=== PATIENT | male | born 1960 | race Caucasian/White ===

== ENCOUNTER 2024-03-24 20:53 | Inpatient (IN) | payer OTHER, SELFPAY ==
[2024-03-24] VITALS (7 sets, daily range): BP systolic 117–157; BP diastolic 54–81; BMI 28.2; BMI 27.6
[2024-03-24 16:40] LABS: Glucose - Point of Care 363 mg/dl (70-99)
[2024-03-24 17:24] LABS: % Eosinophils 0.1 % (0-6); % Immature Granulocytes 0.6 % (0-0.5); % Lymphocytes 5.8 % (20.5-51.1); % Monocytes 6.6 % (1.7-9.3); % Neutrophils 85.9 % (42.2-75.2); Absolute Basophils 0.1 10^3/uL (0-0.2); Absolute Immature Granulocytes 0.1 10^3/uL (0-0.05); Absolute Lymphocytes 0.8 10^3/uL (1.2-3.4); Absolute Monocytes 0.9 10^3/uL (0.1-0.6); Absolute Neutrophils 11.8 10^3/uL (1.4-6.5); Hematocrit 47.6 % (39.0-52.0); Hemoglobin 15.9 g/dL (13.0-18.0); Mean Corp Hgb Conc. 33.4 g/dL (33.0-37.0); Mean Corpuscular Hgb 30.3 pg (27.0-31.0); Mean Corpuscular Volume 90.7 fL (80.0-94.0); Mean Platelet Volume 11.1 fL (7.4-10.4); Nucleated Red Blood Cells % 0 % (-); Platelet Count 269 10^3/uL (130-400); Red Blood Cell Count 5.25 10^6/uL (4.70-6.10); Red Cell Dist. Width 13.9 % (11.5-14.5); White Blood Cell Count 13.8 10^3/uL (4.8-10.8)
[2024-03-24 17:30] LABS: ALT (SGPT) 39 U/L (0-50); AST (SGOT) 47 U/L (17-59); Albumin 5.2 g/dl (3.5-5.0); Alkaline Phosphatase 166 U/L (38-126); Blood Urea Nitrogen 17 mg/dl (9-20); Calcium 10.5 mg/dl (8.4-10.2); Carbon Dioxide < 5 mmol/L (22-30); Chloride 101 mmol/L (98-107); Glucose 341 mg/dl (70-99); Potassium 5.1 mmol/L (3.5-5.1); Sodium 135 mmol/L (135-145); Total Bilirubin 1.5 mg/dl (0.2-1.3); Total Protein 7.7 g/dl (6.3-8.2); eGFR > 60.00
[2024-03-24 18:20] LABS: Glucose - Point of Care 271 mg/dl (70-99)
[2024-03-24] MEDS: NSS 1000 IV (18:23)
--- NOTE | 2024-03-24 18:37 | ED.GENMED ---
History of Present Illness
General
Chief Complaint: Blood Sugar Problem
Source: patient
Exam Limitations: none
Time Seen by Provider: 03/24/24 18:01
Travel History
Have you had any contact with someone who has COVID-19?: No
Do you have any symptoms of coronavirus? Fever > 100 degrees, chills, cough, shortness of breath, sore throat, loss of taste or smell, muscle aches, or headache?: No
History of Present Illness
History of Present Illness:
This is a 63 year old male that comes in with c/o elevated blood sugars. States that he got home from work at 3am and got up at 10am. States that his blood sugar at this time was 320 and he gave himself from Basal insulin about 18-20 units. States
that he kept checking his sugar every 2 hours and it kept going up. State that it went up about 20 points. States that by 3pm his sugar was 360 and he started to feel hot and his breathing was heavy and shallow. States that he knew the feeling so he
decided to come in. States that he did give himself insulin at 2pm. States that he is slightly dizzy. Denies any fever, chills, chest pain, abd pain, nausea, vomiting, diarrhea, headache, urinary burning.
Past History
Past History
ED Past Medical History: IDDM and Other (DKA in 2018); Negative Asthma, CAD or Cancer
ED Past Surgical History: Orthopedic (Right rotator cuff surgery); Negative Cardiac
Social History
Tobacco: Former smoker
Alcohol: Occasional (3 times weekly)
Drug: None
Personal: Single
Living: with family
Employment: Employed
Family History
Family History: Other
Review of Systems
Review of Systems
All Other Systems: ROS reviewed and negative except as documented in HPI and ROS
Constitutional: Reports no symptoms; Denies fever or chills
EENT: Reports no symptoms
Respiratory: Denies cough or trouble breathing ([place] his breathing was shallow)
Cardiac: Reports no symptoms; Denies chest pain
ABD/GI: Reports no symptoms; Denies abdominal pain, nausea, vomiting or diarrhea
: Reports no symptoms; Denies dysuria, frequency or urgency
Musculoskeletal: Reports no symptoms
Skin: Reports no symptoms
Neurological: Reports dizzy; Denies headache
Psychiatric: Reports no symptoms
Phy Exam
General Physical Exam
General Presentation: no apparent distress
General age: appears stated age
General Skin: warm and dry
General Habitus: normal
General Mental: alert
General Hydration: dry mucous membranes
ENT Exam
ENT Exam: TM's normal, pharynx normal and neck supple
Eye Exam
Eye Exam: EOMI
Cardiovascular Exam
Cardiovascular Exam: regular rate/rhythm, no edema and normal peripheral pulses
Pulmonary Exam
Pulmonary Exam: lungs clear, no respiratory distress, no rales, chest non tender, no crackles, no rhonchi, no wheezing and no cough
Gastrointestinal Exam
Gastrointestinal Exam: normal bowel sounds, non tender, soft, no organomegaly, no pulsatile mass and non distended
Musculoskeletal Exam
Musculoskeletal Exam: full ROM and no edema
Skin Exam
Skin Exam: normal color, warm/dry, no rash and no petechia
Psychiatric Exam
Psychiatric Exam: normal mood/affect
Course
Orders/Labs/Results
Orders:
Orders
03/24/24 16:36
Electrocardiogram (*1) Urgent
Reason for Study: Abdominal Pain
EKG- Treatment ONCE
03/24/24 17:07
Complete Blood Count/With Diff Urgent
Comprehensive Metabolic Panel Urgent
03/24/24 18:23
0.9% Sodium Chloride 1000 ml [Nss] 1,000 ml IV BOLUS
03/24/24 18:37
Bedside Glucose- Treatment Q1H
IV Insert/Care/Rem.- Treatment PRN
03/24/24 18:39
B-Hydroxybutyrate Urgent
Basic Metabolic Panel Q2H
03/24/24 18:59
Reg Insulin 100 Units/100 ml [Novolin R Insulin Infusion] 100 units in 100 ml IV NOW
03/24/24 19:37
Venous Blood Gas Urgent
%Oxygen/Room Air: RA
03/24/24 20:45
Basic Metabolic Panel Q2H
03/24/24 22:45
Basic Metabolic Panel Q2H
Abnormal Lab Results
03/24/24 03/24/24 03/24/24
16:38 17:07 18:19
WBC 13.8 H 10^3/uL
(4.8-10.8)
MPV 11.1 H fL
(7.4-10.4)
Abs Immat Gran (auto) 0.1 H 10^3/uL
(0-0.05)
Absolute Neuts (auto) 11.8 H 10^3/uL
(1.4-6.5)
Absolute Lymphs (auto) 0.8 L 10^3/uL
(1.2-3.4)
Absolute Monos (auto) 0.9 H 10^3/uL
(0.1-0.6)
Immature Gran % 0.6 H %
(0-0.5)
Neutrophils % 85.9 H %
(42.2-75.2)
Lymphocytes % 5.8 L %
(20.5-51.1)
VBG pH
VBG pCO2
VBG pO2
VBG HCO3
Carbon Dioxide < 5 L* mmol/L
(22-30)
Glucose 341 H mg/dl
(70-99)
Calcium 10.5 H mg/dl
(8.4-10.2)
Total Bilirubin 1.5 H mg/dl
(0.2-1.3)
Alkaline Phosphatase 166 H U/L
(38-126)
Albumin 5.2 H g/dl
(3.5-5.0)
POC Glucose 363 H mg/dl 271 H mg/dl
(70-99) (70-99)
03/24/24 03/24/24 03/24/24
18:39 19:35 19:37
WBC
MPV
Abs Immat Gran (auto)
Absolute Neuts (auto)
Absolute Lymphs (auto)
Absolute Monos (auto)
Immature Gran %
Neutrophils %
Lymphocytes %
VBG pH 7.21 L
(7.32-7.43)
VBG pCO2 25 L mmHg
(35-48)
VBG pO2 157 H mmHg
(30-50)
VBG HCO3 10.0 L mmol/L
(22-27)
Carbon Dioxide 7 L* mmol/L
(22-30)
Glucose 263 H mg/dl
(-99)
Calcium 10.3 H mg/dl
(8.4-10.2)
Total Bilirubin
Alkaline Phosphatase
Albumin
POC Glucose 236 H mg/dl
(-99)
03/24/24 17:07
Leukocytosis, DKA noted, Total emelina slightly elevated. Calcium slightly elevated. Alk phos elevation. Albumin slightly elevated.
Vital Signs
Initial and Last Documented VS:
Initial Vital Signs
Temp Pulse Resp BP Pulse Ox
97.8 F 120 20 157/81 100
03/24/24 16:31 03/24/24 16:31 03/24/24 16:31 03/24/24 16:31 03/24/24 16:31
Last Documented Vital Signs
Temp Pulse Resp BP Pulse Ox
97.8 F 115 20 139/70 100
03/24/24 16:31 03/24/24 18:11 03/24/24 18:11 03/24/24 18:11 03/24/24 18:11
MDM/Problems Addressed
Differential Diagnosis Includes:
DKA
MDM/Problems Addressed:
This is a 63 year old male that comes in with c/o hyperglycemia. States that he got up at 10am and his blood sugar was 320. Staes that he has been unable to get his sugar down. States that he gave himself insulin at 10am and then again at 2pm.
Will get labs, Start Insulin drip and admit as patient labs show he is in DKA.
Chronic conditions affecting care: DM
Acute Exacerbation and/or Progression of Chronic Illness: DM
*Pulse Oximetry
Patient hypoxic: no
*EKG
Interpreted by ED Provider?: Yes
Heart Rate: 114
Rate: tachycardiac
Rhythm: sinus tachycardia
[place]: normal axis
Interval: normal interval
QRS Pattern: normal QRS
Ischemia: no ischemia
*Director Of Group Sales Interpretation
Rate: tachycardiac
Heart Rate: 109
Rhythm: sinus
*Critical Care Note
Total Time (30-74mins, 75-104mins- exclusive of procedures): Not Applicable
ED Attending Note
-
Portions of this chart may have been created with voice recognition software.� Occasional wrong word or��sound alike� substitutions may have occurred due to the inherent limitations of voice recognition software.
Discharge Plan
Departure
Patient Disposition: Admit
Date of Disposition: 03/24/24
Time of Disposition: 19:17
Admit to: ICU
Presentation/result/management discussed w/ accepting MD/DO: Hospitalist
Patient with high blood pressure during this ER visit?: Yes
Condition: Good
Covid-19: Not Applicable
Discharge Problem:
DKA (diabetic ketoacidosis)
Prescriptions:
No Action
atorvastatin 40 MG tablet
40 mg PO DAILY
insulin lispro 100 unit/mL solution
0 sliding scale dose SC .VIA PUMP
Patient Comments:
03/24/2024: Pt uses an Omnipod
Referrals:
Cherelle Wagner DO [Family Provider] -
Interventions
Interventions:
*Risk Screen - Suicide Last Done: 03/24/24 16:31
*General Assessment Last Done: 03/24/24 16:31
*Neglect/Abuse Screening Last Done: 03/24/24 16:31
ED- Neurological Assessment Last Done: 03/24/24 18:11
Discharge Date and Time
Print Language: KOSOVAN
[2024-03-24 19:18] LABS: Blood Urea Nitrogen 18 mg/dl (9-20); Calcium 10.3 mg/dl (8.4-10.2); Carbon Dioxide 7 mmol/L (22-30); Chloride 102 mmol/L (98-107); Estimated Creatinine Clearance 85 ml/min; Glucose 263 mg/dl (70-99); Potassium 4.9 mmol/L (3.5-5.1); Sodium 135 mmol/L (135-145); eGFR > 60.00
[2024-03-24] MEDS: NOVOLIN R INSULIN INFUSION 100 IV ×2 (19:28→22:51)
[2024-03-24 19:36] LABS: Glucose - Point of Care 236 mg/dl (70-99)
[2024-03-24 19:45] LABS: Venous Blood Gas B.E. -16.1 mmol/L (-4 to +4); Venous Blood Gas O2 Sat % 99.3 %; Venous Blood Gas pCO2 25 mmHg (35-48); Venous Blood Gas pH 7.21 (7.32-7.43); Venous Blood Gas pO2 157 mmHg (30-50)
--- NOTE | 2024-03-24 20:27 | HPS.HSE ---
Family Physician
-
Family Physician: Cherelle Wagner
Chief Complaint
-
Hyperglycemia, Fatigue
History of Present Illness
Patient is a 63y M with PMH significant for DM-I / IAM who presents to ED complaining of elevated glucose since this AM and progressive dry mouth, fatigue and malaise throughout the day. Patient states that he woke this AM around 10 and his
glucose was > 300. He has a Dexcom / insulin pump tandem. He administered extra insulin (via his pump) however his sugars continued to increase throughout the day. Around 3 PM, he changed the pump site / set-up. However, he had already developed
lightheadedness, fatigue, dry mouth, polydipsia and malaise.
He presented to the ED for further evaluation and treatment. He is noted to have hyperglycemia with anion gap acidosis c/w DKA.
Patient denies any recent illness, fevers / chills, cough, N/V/D, urinary symptoms, etc.
He has been using an insulin pump for about 4-5 months now under the direction of his Dust Operator out of [facility].
Medical History
Past Medical History
Past Medical History: Reports Other
Additional Past Medical History:
DM - States that he was initially on oral medicine / Type II but recent evaluation confirms Type I / IAM.
Past Surgical History: Reports Other
Additional Past Surgical History:
R Rotator Cuff Repair
Social History
Tobacco: Former Smoker (Quit smoking 20 years ago. Approx 20 pack years total use.)
Alcohol: Occasional
Drug: None
Family History
Family History: Not pertinent (No family history of DM.)
Allergies / Home Medications
Allergies reflects when Allergies were last updated in [facility].
Home Medications with original date entered in [facility]
Allergy/Medication List:
Allergies
Allergy/AdvReac Type Severity Reaction Status Date / Time
amoxicillin Allergy Unknown Verified 03/24/24 16:36
moxifloxacin HCl Allergy Unknown Verified 03/24/24 16:36
[From Avelox]
Home Medications
atorvastatin 40 mg tablet 40 mg PO DAILY High cholesterol 03/07/20
insulin lispro 100 unit/mL subcutaneous solution 0 sliding scale dose SC .VIA PUMP 03/24/24
Review of Systems
-
History Source: Patient
A 12 point ROS was completed and negative except as noted: Yes
Constitutional: Reports Fatigue; Denies Fever or Chills
EENT: Reports Other (Dry mouth); Denies Sore Throat
Respiratory: Reports Trouble Breathing; Denies Cough
Cardiac: Denies Chest Pain or Palpitations
Abdomen/GI: Denies Abdominal Pain, Nausea, Vomiting or Diarrhea
: Reports Frequency; Denies Dysuria or Incontinence
Musculoskeletal: Denies Joint Pain or Edema
Neurological: Denies Dizzy or Headache
Endocrine: Reports Polyuria and Polydipsia
Psych: Denies Depression or Anxiety
Physical Exam
Vital Signs
Vital Signs
Temp Pulse Resp BP Pulse Ox
97.8 F 99 24 117/54 97
03/24/24 16:31 03/24/24 20:00 03/24/24 20:00 03/24/24 20:00 03/24/24 20:00
Physical Exam
General: Other (63y M in no acute distress.)
HEENT: Other (Dry MM. Neck supple.)
Respiratory: Clear; No Wheezes, Rales or Rhonchi
Cardiac: S1/S2 and Regular Rhythm; No Murmur
GI: Soft, Non Tender, Non Distended and Normal Bowel Sounds
Musculoskeletal: No Clubbing, No Cyanosis and No Edema
Neuro: AO x 3
Laboratory Results
-
03/24/24 17:07
Laboratory Results
Total Bilirubin 1.5 mg/dl (0.2-1.3) H 03/24/24 17:07
AST 47 U/L (17-59) 03/24/24 17:07
ALT 39 U/L (0-50) 03/24/24 17:07
Alkaline Phosphatase 166 U/L (38-126) H 03/24/24 17:07
Impression/Plan
-
A/P: Patient is a 63y M with PMH significant for insuin-dependent DM who presents to ED complaining of hyperglycemia, fatigue and lightheadedness.
DKA
DM-I, Uncontrolled
- Admit for further evaluation and treatment.
- Seems likely this was due to pump failure given Dexcom / pump tandem.
- IV insulin infusion until anion gap is corrected.
- IVFs / electrolytes replacement as needed.
- DM ANALYTICAL CHEMISTRY TEACHER eval after anion gap is normalized for pump recommendations / assessment.
- Check CXR / UA - but patient has no symptoms of focal infection, etc.
DVT Prophylaxis: Lovenox
Code Status: Full
[2024-03-24 20:40] LABS: Glucose - Point of Care 138 mg/dl (70-99)
[2024-03-24 20:58] LABS: B-Hydroxybutyrate 8.86 mmol/L (0.02-0.27)
[2024-03-24 21:25] LABS: Urine Albumin Trace (Neg - Trace); Urine Bilirubin Negative (Negative); Urine Character Clear (Clear); Urine Color Yellow; Urine Glucose 2+ (Negative); Urine Ketone 3+ (Negative); Urine Leukocyte Negative (Negative); Urine Nitrite Negative (Negative); Urine Occult Blood 2+ (Negative); Urine Urobilinogen Negative (Neg - 1+)
[2024-03-24 21:34] LABS: Glucose - Point of Care 129 mg/dl (70-99)
[2024-03-24] MEDS: D5/0.45%NSS with KCL 20 MEQ 1000 IV (21:36)
[2024-03-24 21:45] LABS: Urine Red Blood Cell 21-25 /HPF (0-2); Urine White Cell 0-2 /HPF (0-5)
[2024-03-24 22:04] LABS: Blood Urea Nitrogen 17 mg/dl (9-20); Calcium 9.5 mg/dl (8.4-10.2); Carbon Dioxide 12 mmol/L (22-30); Chloride 106 mmol/L (98-107); Estimated Creatinine Clearance 109 ml/min; Glucose 132 mg/dl (70-99); Potassium 4.5 mmol/L (3.5-5.1); Sodium 132 mmol/L (135-145); eGFR > 60.00
[2024-03-24 22:28] LABS: TSH Reflex To Free T4 0.29 uIU/ml (0.47-4.68)
[2024-03-24 22:57] LABS: Free T4 0.77 ng/dl (0.78-2.19)
[2024-03-24 22:58] LABS: Glucose - Point of Care 142 mg/dl (70-99)
[2024-03-24 23:57] LABS: Glucose - Point of Care 169 mg/dl (70-99)
[2024-03-25] VITALS (10 sets, daily range): BP systolic 110–133; BP diastolic 56–82; BMI 29.0
--- NOTE | 2024-03-25 00:44 | PTCARENOTE ---
pt admitted from ED- pt is a a self, able to walk into room without issues. insulin drip infusing, rate 1u/hr for sugar of 142. pt with no complaints of pain. IV fluids infusing. pt oriented to new room, call schmidt within reach, care ongoing.
[2024-03-25 01:00] LABS: Glucose - Point of Care 150 mg/dl (70-99)
[2024-03-25 01:19] LABS: Blood Urea Nitrogen 15 mg/dl (9-20); Calcium 9.2 mg/dl (8.4-10.2); Carbon Dioxide 15 mmol/L (22-30); Chloride 108 mmol/L (98-107); Estimated Creatinine Clearance > 125 ml/min; Glucose 175 mg/dl (70-99); Potassium 4.4 mmol/L (3.5-5.1); Sodium 132 mmol/L (135-145); eGFR > 60.00
[2024-03-25] MEDS: D5/0.45%NSS with KCL 20 MEQ 1000 IV ×3 (01:43→11:34)
[2024-03-25 02:00] LABS: Glucose - Point of Care 202 mg/dl (70-99)
[2024-03-25 03:09] LABS: Glucose - Point of Care 204 mg/dl (70-99)
[2024-03-25 04:07] LABS: Glucose - Point of Care 234 mg/dl (70-99)
[2024-03-25 05:16] LABS: Glucose - Point of Care 213 mg/dl (70-99)
[2024-03-25 05:25] LABS: Hematocrit 36.8 % (39.0-52.0); Hemoglobin 12.9 g/dL (13.0-18.0); Mean Corp Hgb Conc. 35.1 g/dL (33.0-37.0); Mean Corpuscular Volume 85.6 fL (80.0-94.0); Mean Platelet Volume 10.8 fL (7.4-10.4); Platelet Count 208 10^3/uL (130-400); Red Cell Dist. Width 13.9 % (11.5-14.5); White Blood Cell Count 7.8 10^3/uL (4.8-10.8)
[2024-03-25 05:55] LABS: ALT (SGPT) 27 U/L (0-50); AST (SGOT) 29 U/L (17-59); Albumin 3.4 g/dl (3.5-5.0); Alkaline Phosphatase 101 U/L (38-126); Blood Urea Nitrogen 12 mg/dl (9-20); Calcium 9.1 mg/dl (8.4-10.2); Carbon Dioxide 16 mmol/L (22-30); Chloride 110 mmol/L (98-107); Direct Bilirubin 0.3 mg/dl (0.0-0.4); Estimated Creatinine Clearance > 125 ml/min; Glucose 189 mg/dl (70-99); Magnesium 1.9 mg/dl (1.6-2.3); Phosphorus 3.2 mg/dl (2.5-4.5); Potassium 4.2 mmol/L (3.5-5.1); Sodium 132 mmol/L (135-145); Total Bilirubin 0.9 mg/dl (0.2-1.3); Total Protein 5.6 g/dl (6.3-8.2); eGFR > 60.00
[2024-03-25 06:16] LABS: Glucose - Point of Care 182 mg/dl (70-99)
[2024-03-25 07:20] LABS: Glucose - Point of Care 167 mg/dl (70-99)
[2024-03-25] MEDS: PROTONIX IV 40 MG IV (08:10)
[2024-03-25 08:20] LABS: Glucose - Point of Care 183 mg/dl (70-99)
[2024-03-25 09:09] LABS: Glycohemoglobin (HgbA1c) 8.2 % (4.0-5.6)
[2024-03-25 09:15] LABS: Glucose - Point of Care 187 mg/dl (70-99)
[2024-03-25 10:39] LABS: Glucose - Point of Care 212 mg/dl (70-99)
[2024-03-25 11:44] LABS: Glucose - Point of Care 211 mg/dl (70-99)
--- NOTE | 2024-03-25 11:56 | PN.DE.MGMTRT ---
Addendum entered and electronically signed by Zaira Darby NP 03/25/24 12:02:
After lantus administered 2 hours later please stop insulin and IV fluids. Nayana RUFF
Original Note:
Insulin Management
- -
03/25/2024 Diabetes Management Consult
Patient admitted with DKA. H type 1 diabetes, was using an OmniPod with DexCom. A1C on admission 8.2%. Patient follows with [facility]. CR .6, eGFR >60
Patient currently on DKA insulin infusion, GAP has closed. Patient has no PODS and CGM has , there is no one who can bring supplies. I am able to see his settings for his pump:
Basal: .9 per hour, 21.6 Basal total
I:CHO ratio 1:6.5
Correction 1:32
Will give 22 units lantus now, 1800 calorie diet, 6 units novolog AC with moderate corrective.
Will follow
Diabetes History
- -
Type of Diabetes: 1
Pre-Admission Diabetes Regimen
03/24/24 03/24/24 03/24/24
17:07 18:39 20:45
Creatinine 0.9 0.9 Cancelled
03/24/24 03/24/24 03/25/24
21:31 22:45 00:49
Creatinine 0.7 Cancelled 0.6 L
03/25/24 03/25/24 03/25/24
05:05 09:21 13:11
Creatinine 0.6 L Cancelled Cancelled
03/25/24
17:11
Creatinine Cancelled
Lab Results
Hemoglobin A1c 8.2 % (4.0-5.6) H 03/24/24 21:31
Insulin Pump Settings
IP Diabetes Regimen
03/24/24 03/24/24 03/24/24
16:38 17:07 18:19
Glucose 341 H
POC Glucose 363 H 271 H
03/24/24 03/24/24 03/24/24
18:39 19:35 20:37
Glucose 263 H
POC Glucose 236 H 138 H
03/24/24 03/24/24 03/24/24
20:45 21:31 21:33
Glucose Cancelled 132 H
POC Glucose 129 H
03/24/24 03/24/24 03/24/24
22:45 22:46 23:44
Glucose Cancelled
POC Glucose 142 H 169 H
03/25/24 03/25/24 03/25/24
00:48 00:49 01:46
Glucose 175 H
POC Glucose 150 H 202 H
03/25/24 03/25/24 03/25/24
02:56 03:54 05:03
Glucose
POC Glucose 204 H 234 H 213 H
03/25/24 03/25/24 03/25/24
05:05 06:02 07:07
Glucose 189 H
POC Glucose 182 H 167 H
03/25/24 03/25/24 03/25/24
08:08 09:02 09:21
Glucose Cancelled
POC Glucose 183 H 187 H
03/25/24 03/25/24 03/25/24
10:28 11:33 13:11
Glucose Cancelled
POC Glucose 212 H 211 H
03/25/24
17:11
Glucose Cancelled
POC Glucose
Patient Education
[2024-03-25 12:39] LABS: Blood Urea Nitrogen 8 mg/dl (9-20); Carbon Dioxide 15 mmol/L (22-30); Chloride 110 mmol/L (98-107); Estimated Creatinine Clearance > 125 ml/min; Glucose 192 mg/dl (70-99); Potassium 4.5 mmol/L (3.5-5.1); Sodium 134 mmol/L (135-145); eGFR > 60.00
[2024-03-25] MEDS: LANTUS 0.220000000000000001 UNITS SC (12:47)
[2024-03-25 12:50] LABS: Glucose - Point of Care 220 mg/dl (70-99)
[2024-03-25 13:50] LABS: Glucose - Point of Care 206 mg/dl (70-99)
[2024-03-25] MEDS: NOVOLOG FLEXPEN 6 UNITS SC ×2 (14:42→18:42)
[2024-03-25] MEDS: NOVOLOG FLEXPEN-MODERATE RESISTANCE 1 UNITS SC (14:43)
[2024-03-25] MEDS: D5LR 1000 IV (14:43)
[2024-03-25 14:44] LABS: Glucose - Point of Care 189 mg/dl (70-99)
--- NOTE | 2024-03-25 14:56 | W.PN.HOSP.TC ---
Today's Communication/Plan
-
transition to subq insulin
dm diet
monitor fs
Assessment / Plan
Assessment / Plan
Physical Exam
General: Other (63y M in no acute distress.)
HEENT: Other (Dry MM. Neck supple.)
Respiratory: Clear; No Wheezes, Rales or Rhonchi
Cardiac: S1/S2 and Regular Rhythm; No Murmur
GI: Soft, Non Tender, Non Distended and Normal Bowel Sounds
Musculoskeletal: No Clubbing, No Cyanosis and No Edema
Neuro: AO x 3
A/P: Patient is a 63y M with PMH significant for insuin-dependent DM who presents to ED complaining of hyperglycemia, fatigue and lightheadedness.
DKA
DM-I, Uncontrolled
- Admit for further evaluation and treatment.
- Seems likely this was due to pump failure given Dexcom / pump tandem.
- Gap Closed; transitioned to Subq insulin
- Cont IVF until can tolerate diet, then can dc fluids
- Resume DM diet
- BMP x 1 - 4 hours after dc insulin ggt
- Appreciate DM COSTING MANAGER recs
- No evidence of infection/chest pain
-Monitor FS - if stable, plan for dc tomorrow
-Hgba1c - 8.2
#Leukocytosis
-most likely reactive with DKA
-no evidence of infection
-f/u cbc, wbc
-improved with resuscitation
#Clinical Euthyroidism
-f/u tsh/ reflex free t4 outpatient
DVT Prophylaxis: Lovenox
Code Status: Full
Total time spent on today's encounter was 50 minutes which included time spent in counseling the patient/family regarding diagnosis and treatment plan as listed above, goals of care, and symptom management. Case was discussed with nursing staff,
specialists, and care coordinators/case management. All labs and imaging personally reviewed by me. Remainder the time spent in detailed review of previous records, lab data, imaging, and other medical provider documentation.
Anticipated Discharge: Within 24 hours
Subjective/Interval History
-
Date of Service: March 25, 2024
gap closed
Objective Data
-
Labs:
Laboratory Results
03/25/24 03/25/24 03/25/24
05:05 09:21 11:46
WBC 7.8
Hgb 12.9 L
Hct 36.8 L
Plt Count 208 D
Sodium 132 L Cancelled Pending
Potassium 4.2 Cancelled Pending
Chloride 110 H Cancelled Pending
Carbon Dioxide 16 L Cancelled Pending
BUN 12 Cancelled Pending
Creatinine 0.6 L Cancelled Pending
Glucose 189 H Cancelled Pending
Calcium 9.1 Cancelled Pending
Total Bilirubin 0.9
AST 29
ALT 27
Alkaline Phosphatase 101
03/25/24 03/25/24 03/25/24
11:52 13:11 16:00
WBC
Hgb
Hct
Plt Count
Sodium 134 L Cancelled Pending
Potassium 4.5 Cancelled Pending
Chloride 110 H Cancelled Pending
Carbon Dioxide 15 L Cancelled Pending
BUN 8 L Cancelled Pending
Creatinine 0.5 L Cancelled Pending
Glucose 192 H Cancelled Pending
Calcium 9.0 Cancelled Pending
Total Bilirubin
AST
ALT
Alkaline Phosphatase
03/25/24 03/25/24
17:11 20:00
WBC
Hgb
Hct
Plt Count
Sodium Cancelled Pending
Potassium Cancelled Pending
Chloride Cancelled Pending
Carbon Dioxide Cancelled Pending
BUN Cancelled Pending
Creatinine Cancelled Pending
Glucose Cancelled Pending
Calcium Cancelled Pending
Total Bilirubin
AST
ALT
Alkaline Phosphatase
Vital Signs:
Vital Signs
Temp Pulse Resp BP Pulse Ox
97.6 F 83 15 110/57 95
03/25/24 11:14 03/25/24 06:00 03/25/24 06:00 03/25/24 06:00 03/25/24 06:00
Review of Systems
-
History Source: Patient
All other systems: Not reviewed unless documented
Data Reviewed
-
Diagnostic Radiology: Image personally visualized and interpreted and Report Reviewed by me
Labs: Labs Reviewed by me
--- NOTE | 2024-03-25 17:02 | CM ---
Patient with DKA likely due to pump failure.
Met with patient who resides alone in a 2 story house.
The patient has been independent in ADLs and ambulation.
His only DME is the Dexcom 6 GCM with OmniPod. He says pump failure will not be an issue at d/c as he has more pods at home.
No prior VN.
PCP - [facility]
No CM d/c needs identified.
Plan home.
[2024-03-25 17:29] LABS: Blood Urea Nitrogen 5 mg/dl (9-20); Calcium 9.1 mg/dl (8.4-10.2); Carbon Dioxide 18 mmol/L (22-30); Chloride 111 mmol/L (98-107); Estimated Creatinine Clearance > 125 ml/min; Glucose 242 mg/dl (70-99); Potassium 4.7 mmol/L (3.5-5.1); Sodium 135 mmol/L (135-145); eGFR > 60.00
--- NOTE | 2024-03-25 18:00 | PTCARENOTE ---
see nursing assessment. sinus rythym on monitor. pt seen by health educator. insulin drip and iv fluids discontinued and pt ate 100 percent of his lunch. he has no complaints and is currently oob in chair awaiting dinner.
[2024-03-25] MEDS: NOVOLOG FLEXPEN-MODERATE RESISTANCE 5 UNITS SC (18:41)
[2024-03-25 18:42] LABS: Glucose - Point of Care 252 mg/dl (70-99)
[2024-03-25 21:37] LABS: Glucose - Point of Care 217 mg/dl (70-99)
[2024-03-26 00:11] VITALS: BP 128/89
--- NOTE | 2024-03-26 04:19 | PTCARENOTE ---
Patient showered before bed. Up ad phil independently. Ambulated in the hallway, several laps around IMU/ICU. Denies any pain, sob or palpitations. No gi/gu complaints. NSR on tele monitor. IVs saline locked. Pt went to bed late around 0100; reports
he works nightshift.
CB remains within reach. Calls appropriately.
[2024-03-26 05:11] VITALS: BMI 27.2
[2024-03-26 05:16] VITALS: BP 136/81
[2024-03-26 05:38] LABS: Hematocrit 40.6 % (39.0-52.0); Hemoglobin 14.2 g/dL (13.0-18.0); Mean Corpuscular Hgb 30.1 pg (27.0-31.0); Mean Platelet Volume 10.8 fL (7.4-10.4); Platelet Count 191 10^3/uL (130-400); Red Blood Cell Count 4.72 10^6/uL (4.70-6.10); Red Cell Dist. Width 14.2 % (11.5-14.5); White Blood Cell Count 4.3 10^3/uL (4.8-10.8)
[2024-03-26 06:02] LABS: ALT (SGPT) 40 U/L (0-50); AST (SGOT) 55 U/L (17-59); Albumin 3.8 g/dl (3.5-5.0); Alkaline Phosphatase 112 U/L (38-126); Blood Urea Nitrogen 6 mg/dl (9-20); Calcium 9.4 mg/dl (8.4-10.2); Carbon Dioxide 18 mmol/L (22-30); Chloride 109 mmol/L (98-107); Estimated Creatinine Clearance > 125 ml/min; Glucose 252 mg/dl (70-99); Potassium 4.4 mmol/L (3.5-5.1); Sodium 136 mmol/L (135-145); Total Bilirubin 0.9 mg/dl (0.2-1.3); eGFR > 60.00
[2024-03-26 08:23] LABS: Glucose - Point of Care 288 mg/dl (70-99)
--- NOTE | 2024-03-26 08:32 | PN.DE.MGMTRT ---
Insulin Management
- -
03/25/2024 Diabetes Management Consult
Patient admitted with DKA. H type 1 diabetes, was using an OmniPod with DexCom. A1C on admission 8.2%. Patient follows with [facility]. CR .6, eGFR >60
Patient transitioned from DKA insulin infusion to subcutaneous insulin 03/25. Patient has no PODS and CGM has , there is no one who can bring supplies. I am able to see his settings for his pump:
Basal: .9 per hour, 21.6 Basal total
I:CHO ratio 1:6.5
Correction 1:32
03/25 Received 22 units lantus @ ~ 12:47, drip off 2 hours later. Received 6 units novolog AC with moderate corrective Glucose range 217 to 252. Will increase AC novolog to 10 units. Will NOT give AM lantus, will give 14 units NPH to provide
insulin coverage till patient discharged. Discussed with patient, he is agreeable. Patient to be discharged ~ 11 to 12 today and can resume pump and DexCom.
Will follow
Diabetes History
- -
Type of Diabetes: 1
Pre-Admission Diabetes Regimen
03/25/24 03/25/24 03/25/24
09:21 11:46 11:52
Creatinine Cancelled Cancelled 0.5 L
03/25/24 03/25/24 03/25/24
13:11 17:02 17:11
Creatinine Cancelled 0.5 L Cancelled
03/25/24 03/26/24
20:00 05:22
Creatinine Cancelled 0.5 L
Lab Results
Hemoglobin A1c 8.2 % (4.0-5.6) H 03/24/24 21:31
Insulin Pump Settings
IP Diabetes Regimen
03/25/24 03/25/24 03/25/24
09:02 09:21 10:28
Glucose Cancelled
POC Glucose 187 H 212 H
03/25/24 03/25/24 03/25/24
11:33 11:46 11:52
Glucose Cancelled 192 H
POC Glucose 211 H
03/25/24 03/25/24 03/25/24
12:39 13:11 13:38
Glucose Cancelled
POC Glucose 220 H 206 H
03/25/24 03/25/24 03/25/24
14:33 17:02 17:11
Glucose 242 H Cancelled
POC Glucose 189 H
03/25/24 03/25/24 03/25/24
18:30 20:00 21:25
Glucose Cancelled
POC Glucose 252 H 217 H
03/26/24 03/26/24
05:22 08:10
Glucose 252 H
POC Glucose 288 H
Meal type: Dinner
Meal type: Dinner
Meal type: Lunch
Amount consumed: 90%
Amount consumed: 100%
Amount consumed: 100%
Patient Education
[2024-03-26] MEDS: NOVOLOG FLEXPEN-MODERATE RESISTANCE 300 UNITS SC (08:37)
[2024-03-26] MEDS: PROTONIX IV 40 MG IV (08:38)
[2024-03-26 08:40] VITALS: BP 113/62
[2024-03-26] MEDS: NOVOLOG FLEXPEN SC (09:02)
[2024-03-26] MEDS: NOVOLOG FLEXPEN 10 UNITS SC (09:04)
--- NOTE | 2024-03-26 09:36 | PN.CDI ---
CDI
- -
CDI:
Physician Documentation Request
Admit Date: 03/24/24 20:53
Dear Doctor Martin,
Please review the following and provide your response in the progress notes.
Clinical Indicators:
- Admit for DKA
- 6L IVF given
- Labs as follows:
Laboratory Tests
03/24/24 03/25/24 03/25/24
21:31 00:49 05:05
Sodium 132 L 132 L 132 L
03/25/24 03/25/24 03/26/24
11:52 17:02 05:22
Sodium 134 L 135 136
Please provide a diagnosis for the above lab values that were monitored and treatment rendered:
Hyponatremia
Clinically insignificant abnormal lab value
Other
Use of terms such as suspected, likely, concern for, or probable (associated with a specific diagnosis that is being evaluated, monitored, or treated as if it exists) are acceptable and can be coded in the inpatient setting, when documented at the
time of discharge.
Thank you,
Yuliya Fallon RN
CDI Specialist
Please use your independent medical judgment in providing your response.
--- NOTE | 2024-03-26 09:39 | PN.CDI ---
CDI
- -
CDI:
Physician Documentation Request
Admit Date: 03/24/24 20:53
Dear Doctor Martin,
Please review the following and provide your response in the progress notes.
Clinical Indicators:
- Admit for DKA
- On admission:
- WBC 13.8
- HR 100's
- RR 20's
- 6L IVF given
Please clarify which most accurately describes the patient:
SIRS due to a non-infectious source due to DKA
Clinically insignificant abnormal lab value
Other
Use of terms such as suspected, likely, concern for, or probable (associated with a specific diagnosis that is being evaluated, monitored, or treated as if it exists) are acceptable and can be coded in the inpatient setting, when documented at the
time of discharge.
Thank you,
Yuliya Fallon RN
CDI Specialist
Please use your independent medical judgment in providing your response.
--- NOTE | 2024-03-26 11:30 | W.PN.HOSP.TC ---
Addendum entered and electronically signed by Jean Salazar MD 03/28/24 16:45:
SIRS due to a non-infectious source due to DKA
Hyponatremia
Addendum entered and electronically signed by Jean Salazar MD 03/27/24 15:36:
[id number]
Original Note:
Today's Communication/Plan
-
dc back on insulin pump
f/u TFTs in 6 weeks
f/u pcp, endocrinology outpatient
Assessment / Plan
Assessment / Plan
Physical Exam
General: Other (63y M in no acute distress.)
HEENT: Other (Dry MM. Neck supple.)
Respiratory: Clear; No Wheezes, Rales or Rhonchi
Cardiac: S1/S2 and Regular Rhythm; No Murmur
GI: Soft, Non Tender, Non Distended and Normal Bowel Sounds
Musculoskeletal: No Clubbing, No Cyanosis and No Edema
Neuro: AO x 3
A/P: Patient is a 63y M with PMH significant for insuin-dependent DM who presents to ED complaining of hyperglycemia, fatigue and lightheadedness.
DKA
DM-I, Uncontrolled
- Admit for further evaluation and treatment.
- Seems likely this was due to pump failure given Dexcom / pump tandem.
- Gap Closed; transitioned to Subq insulin
- Transition over to insulin pump on discharge
� Follow-up endocrinology, PCP closely outpatient
-Hgba1c - 8.2, titrated outpatient
#Leukocytosis
-most likely reactive with DKA
-no evidence of infection
-improved with resuscitation
#Clinical Euthyroidism
-f/u tsh/ reflex free t4 outpatient
DVT Prophylaxis: Lovenox
Code Status: Full
More than 30 minutes spent in discharge including
Final examination of the patient
Summarizing hospital stay
Instructions for continuing care to all relevant caregivers
Preparation of discharge records, prescriptions, and referral forms
Total time spent (35 in minutes):
Anticipated Discharge: Today
Subjective/Interval History
-
Date of Service: March 26, 2024
No acute events
Objective Data
-
Labs:
Laboratory Results
03/26/24
05:22
WBC 4.3 L
Hgb 14.2
Hct 40.6
Plt Count 191
Sodium 136
Potassium 4.4
Chloride 109 H
Carbon Dioxide 18 L
BUN 6 L
Creatinine 0.5 L
Glucose 252 H
Calcium 9.4
Total Bilirubin 0.9
AST 55
ALT 40
Alkaline Phosphatase 112
Vital Signs:
Vital Signs
Temp Pulse Resp BP Pulse Ox
97.8 F 75 12 136/81 97
03/26/24 07:20 03/26/24 08:00 03/26/24 08:00 03/26/24 05:16 03/26/24 05:34
I&O
03/25/24 03/26/24 03/27/24
06:59 06:59 06:59
Intake Total 1390 / 1390
Balance 1390 / 1390
Review of Systems
-
History Source: Patient
All other systems: Not reviewed unless documented
Data Reviewed
-
Diagnostic Radiology: Image personally visualized and interpreted and Report Reviewed by me
Labs: Labs Reviewed by me
--- NOTE | 2024-03-26 11:32 | W.DS.TRANS ---
DC Summary - Protection Mgr
-
Discharge Instructions:
Discharge Diagnosis/Procedures DKA
DM-I, Uncontrolled
Diet Diabetic, Carb Controlled
Activity As tolerated
Blood Work TFTs in 6 weeks, hgba1c in 6 months; f/u bmp and
cbc in 1 week
Instructions:
Stand-Alone Forms:
Changes to Home Medications: No
Discharge Medications:
DC Medications w/original date entered in [email or web address]
atorvastatin 40 mg tablet 40 mg PO DAILY High cholesterol 03/07/20
insulin lispro 100 unit/mL subcutaneous solution 0 sliding scale dose SC .VIA PUMP Diabetes 03/24/24
Home Medication Changes
no
Pending Results: No
[2024-03-26 11:36] VITALS: BP 115/84
[2024-03-26] MEDS: NOVOLIN N vial 0.140000000000000013 UNITS SC (12:07)
--- NOTE | 2024-03-26 12:34 | PTCARENOTE ---
pt discharged home . seen by diabetic ed prior to discharge and humulin N given per order. monitor removed by pt this am when dr told pt he was being discharged. ivs removed. pt left with belongings.
--- NOTE | 2024-03-26 17:52 | CM ---
Spoke with patient who was preparing for discharge. The patient says he feels ready for discharge home today. He planned on driving himself home.
No CM d/c needs identified.
Plan home today.
== END 2024-03-26 12:12 | disposition home or self-care (01) | DRG 638 ==
LOC: IMU 20:53
PROVIDERS: Clinical Nurse Specialist Family Health; Nurse Practitioner Family; Student in an Organized Health Care Education/Training Program; ADMITTING PHYSICIAN Hospitalist; ATTENDING PHYSICIAN Internal Medicine; EMERGENCY PHYSICIAN Emergency Medicine; FAMILY PHYSICIAN Family Medicine
DX: E10.10 Type 1 diabetes mellitus with ketoacidosis without coma (principal); E87.1 Hypo-osmolality and hyponatremia; R65.10 Systemic inflammatory response syndrome (SIRS) of non-infectious origin without acute organ dysfunction; T85.694A Other mechanical complication of insulin pump, initial encounter; Z87.891 Personal history of nicotine dependence; Z79.4 Long term (current) use of insulin; Z96.41 Presence of insulin pump (external) (internal); Y74.2 Prosthetic and other implants, materials and accessory general hospital and personal-use devices associated with adverse incidents
CPT/HCPCS: 71046; 80048; 80053; 81003; 81015; 82010; 82248; 82805; 82962; 83036; 83735; 84100; 84439; 84443; 85025; 85027; 93005; 96360; 99285

== ENCOUNTER → 2025-04-16 14:04 | Outpatient (REF) | payer OTHER, BC, SELFPAY | LOC: RAD 14:04 | PROVIDERS: ATTENDING PHYSICIAN Physician Assistant | DX: R63.4 Abnormal weight loss (principal) | CPT/HCPCS: 71046 ==

== ENCOUNTER → 2025-04-26 14:59 | Outpatient (REF) | payer BC, SELFPAY | LOC: RAD 14:59 | PROVIDERS: ATTENDING PHYSICIAN Physician Assistant | DX: R63.4 Abnormal weight loss (principal) | CPT/HCPCS: 71260; 74177; Q9967 ==

== ENCOUNTER 2025-07-01 06:21 | Day surgery (SDC) | payer BC, SELFPAY ==
[2025-07-01 07:52] LABS: Glucose - Point of Care 133 mg/dl (70-99)
== END 2025-07-01 09:38 | disposition home or self-care (01) ==
LOC: GI 06:21
PROVIDERS: ATTENDING PHYSICIAN Internal Medicine Gastroenterology
DX: Z12.11 Encounter for screening for malignant neoplasm of colon (principal); K52.9 Noninfective gastroenteritis and colitis, unspecified; K57.30 Diverticulosis of large intestine without perforation or abscess without bleeding; K64.8 Other hemorrhoids; R63.4 Abnormal weight loss; K63.5 Polyp of colon; R12 Heartburn; K31.89 Other diseases of stomach and duodenum; K22.89 Other specified disease of esophagus; Z86.0100 Personal history of colon polyps, unspecified
CPT/HCPCS: 45380; 43239; 82962; 88305; 88342

== ENCOUNTER → 2025-08-13 08:52 | Outpatient (REF) | payer MEDICAID, SELFPAY | LOC: RAD 08:52 | PROVIDERS: ATTENDING PHYSICIAN Physician Assistant | DX: M25.561 Pain in right knee (principal); M25.562 Pain in left knee | CPT/HCPCS: 73564 ==

== ENCOUNTER → 2025-08-26 09:21 | Outpatient (REF) | payer OTHER, SELFPAY | LOC: RAD 09:21 | PROVIDERS: ATTENDING PHYSICIAN Physician Assistant | DX: M25.561 Pain in right knee (principal); M25.562 Pain in left knee; I70.90 Unspecified atherosclerosis | CPT/HCPCS: 93922; 93925 ==